=== PATIENT | female | born 1950 | race Caucasian/White ===

== ENCOUNTER → 2017-03-21 | Outpatient (CLI) | payer MEDICARE, BC ==
--- NOTE | 2017-03-21 10:05 | ECHOF ---
Referral Reason:I10 E66.01 obesity MEASUREMENTS -------- HEIGHT: 154.9 cm WEIGHT: 104.3 kg BP: IVSd: 1.0 cm (0.6 - 1.1) LVIDd: 4.1 cm (3.9 - 5.3) LVPWd: 1.2 cm (0.6 - 1.1) IVSs: 1.6 cm LVIDs: 2.0 cm LVPWs: 1.6 cm Ao Diam: 3.7 cm (2.0 - 3.7) AV Cusp: 1.2 cm (1.5 - 2.6) LA Diam: 3.7 cm (2.7 - 3.8) MV E Kendall: 1.05 m/s MV DecT: 124 ms MV A Kendall: 1.69 m/s MV E/A Ratio: 0.62 AV maxP.91 mmHg AV meanP.18 mmHg RAP: 5.00 mmHg RVSP: 19.44 mmHg FINDINGS -------- Sinus rhythm. This was a technically difficult study with suboptimal views. There is mild concentric left ventricular hypertrophy. Overall left ventricular systolic function is normal with, an EF between 55 - 60 %. The right ventricle is normal in size and function. The left atrium is normal in size. The right atrium is normal in size. The aortic valve was not well visualized. Aortic valve is trileaflet and is mildly thickened. There is mild aortic stenosis present. Peak/mean gradient across the Aortic Valve is 17.91mmHg / 12.18mmHg. The mitral valve leaflets are mildly thickened. Mild mitral annular calcification present. Mild mitral regurgitation is present. Trace tricuspid regurgitation present. The right ventricular systolic pressure, as measured by Doppler, is 19.44mmHg. Pulmonic valve appears structurally normal. The aortic root size is normal. The pericardium is normal. CONCLUSIONS -------- 1. Sinus rhythm. 2. There is mild aortic stenosis present. 3. Peak/mean gradient across the Aortic Valve is 17.91mmHg / 12.18mmHg. 4. The mitral valve leaflets are mildly thickened. 5. Mild mitral annular calcification present. 6. Mild mitral regurgitation is present. 7. Trace tricuspid regurgitation present. 8. The right ventricular systolic pressure, as measured by Doppler, is 19.44mmHg. 9. Pulmonic valve appears structurally normal. 10. The aortic root size is normal. 11. The pericardium is normal. 12. This was a technically difficult study with suboptimal views. 13. There is mild concentric left ventricular hypertrophy. 14. Overall left ventricular systolic function is normal with, an EF between 55 - 60 %. 15. The right ventricle is normal in size and function. 16. The left atrium is normal in size. 17. The right atrium is normal in size. 18. The aortic valve was not well visualized. 19. Aortic valve is trileaflet and is mildly thickened. BARIATRIC PHYSICIAN: Ave Hammonds RDCS
== END | disposition home or self-care (01) ==
LOC: RADECHMAIN 08:12
PROVIDERS: ATTEND Family Medicine
DX: I35.0 Nonrheumatic aortic (valve) stenosis (principal); I34.0 Nonrheumatic mitral (valve) insufficiency; I07.1 Rheumatic tricuspid insufficiency
CPT/HCPCS: 93306

== ENCOUNTER 2018-09-27 14:33 | Emergency (ER) | payer MEDICARE, BC ==
[2018-09-27] MEDS ORDERED: ACETAMINOPHEN TAB 500 MG TAB PO STA (15:01)
[2018-09-27] MEDS ORDERED: IBUPROFEN 600 MG TAB PO STA (15:01)
[2018-09-27] MEDS ORDERED: SODIUM CHLORIDE 0.9% 1,000 ML IV STA (15:02)
[2018-09-27 15:05] LABS: Anisocytosis Slight; Basophils % (A) 0 %; Eosinophils # (A) 0.2 k/uL (0-0.7); Eosinophils % (A) 1 %; HCT 42.8 % (34.0-46.0); HGB 14.5 gm/dL (11.4-16.0); Lymphocytes # (A) 0.3 k/uL (1.0-4.8); Lymphocytes % (A) 1 %; MCH 28.9 pg (25.0-35.0); MCHC 33.9 g/dL (31.0-37.0); MCV 85.1 fL (80.0-100.0); Mean Platelet Volume 7.4; Monocytes # (A) 0.3 k/uL (0-1.0); Monocytes % (A) 2 %; Neutrophils # (A) 18.1 k/uL (1.3-7.7); Neutrophils % (A) 96 %; Platelet Count 186 k/uL (150-450); RBC 5.03 m/uL (3.80-5.40); RDW 18.3 % (11.5-15.5)
--- NOTE | 2018-09-27 15:08 | ED ---
General Adult HPI - General Chief complaint: Fever Stated complaint: Fever,Weakness Time Seen by Provider: 09/27/18 14:55 Source: patient Mode of arrival: ambulatory Limitations: no limitations - History of Present Illness Initial comments: Patient 68-year-old male presented to the emergency room today with a chief complaint of cough congestion. Friend at bedside stating that she seemed confused earlier today. States she called her on the phone and was talking about going shopping and was only getting quick one-word answers back from her. Patient does admit that she's had a cough. She denies any sputum production. Patient does have a fever at triage. Patient was unaware fever has not taken any Tylenol or Motrin today. Patient denies any other complaints or any other symptoms. - Related Data Previous Rx's Medication Instructions Recorded Azithromycin [Zithromax Z-pack] 0 mg PO DIRECTED #6 tab 09/27/18 Allergies Allergy/AdvReac Type Severity Reaction Status Date / Time Penicillins Allergy Unknown Verified 09/27/18 14:56 Review of Systems ROS Statement: Those systems with pertinent positive or pertinent negative responses have been documented in the HPI. ROS Other: All systems not noted in ROS Statement are negative. Past Medical History Past Medical History: Diabetes Mellitus, Hypertension History of Any Multi-Drug Resistant Organisms: None Reported Past Surgical History: Orthopedic Surgery Past Psychological History: No Psychological Hx Reported Smoking Status: Never smoker Past Alcohol Use History: None Reported Past Drug Use History: None Reported General Exam - General Exam Comments Initial Comments: General: The patient is awake and alert, in no distress, and does not appear acutely ill. Eye: Pupils are equal, round and reactive to light. Extra-ocular movements are intact. No nystagmus. There is normal conjunctiva bilaterally. No signs of icterus. Ears, nose, mouth and throat: There are moist mucous membranes and no oral lesions. Neck: The neck is supple, there is no tenderness or JVD. Cardiovascular: Tachycardic. No murmur, rub or gallop is appreciated. Respiratory: Lungs are clear to auscultation, respirations are non-labored, breath sounds are equal. No wheezes, stridor, rales, or rhonchi. Gastrointestinal: Soft, non-distended, non-tender abdomen without masses or organomegaly noted. There is no rebound or guarding present. No CVA tenderness. Musculoskeletal: Normal ROM, no tenderness. Sensation intact. Strength 5/5. Pulses equal bilaterally 2+. Neurological: A&O x 3. CN II-XII intact, There are no obvious motor or sensory deficits. Coordination appears grossly intact. Speech is normal. Skin: Skin is warm and dry and no rashes or lesions are noted. Psychiatric: Cooperative, appropriate mood & affect, normal judgment. Limitations: no limitations Course Vital Signs 09/27/18 09/27/18 09/27/18 14:51 14:56 14:59 Temperature 101.6 F H Pulse Rate 124 H 117 H Respiratory 20 22 22 Rate Blood Pressure 141/75 130/66 O2 Sat by Pulse 95 94 L Oximetry 09/27/18 09/27/18 15:00 16:12 Temperature 100.5 F H Pulse Rate 117 H Respiratory 20 Rate Blood Pressure 130/66 O2 Sat by Pulse 96 Oximetry EKG Findings - EKG Comments: EKG Findings:: EKG performed at 1457: Shows sinus tachycardia 118 bpm. OR interval 150. QRS 78. QT/QTC 324/454. No acute ST changes. Medical Decision Making - Medical Decision Making Patient's labs been reviewed does show 19,000 white count. Patient's lactic acid negative. Patient's blood glucose mildly elevated. Is a diabetic. Patient was given IV fluids here in emergency room. They have fever at triage was given Tylenol/ibuprofen. Fever has improved. Tachycardia has decreased with fever control. BNP was added is 1300. Patient denies any shortness of breath. Chest x-rays negative for any sign of pneumonia. Patient does note some cough congestion. D-dimer negative. Case discussed in detail with attending physician Dr. Quevedo. Patient will be treated for bronchitis infection. Patient is advised follow-up family doctor in the next 2 days. She is agreement with plan to be discharged and started on antibiotics. Will be given first dose being here in the ER. - Lab Data Result diagrams: 09/27/18 14:49 09/27/18 14:49 Lab Results 09/27/18 09/27/18 09/27/18 Range/Units 14:49 14:49 14:49 WBC 19.0 H (3.8-10.6) k/uL RBC 5.03 (3.80-5.40) m/uL Hgb 14.5 (11.4-16.0) gm/dL Hct 42.8 (34.0-46.0) % MCV 85.1 (80.0-100.0) fL MCH 28.9 (25.0-35.0) pg MCHC 33.9 (31.0-37.0) g/dL RDW 18.3 H (11.5-15.5) % Plt Count 186 (150-450) k/uL Neutrophils % 96 % Lymphocytes % 1 % Monocytes % 2 % Eosinophils % 1 % Basophils % 0 % Neutrophils # 18.1 H (1.3-7.7) k/uL Lymphocytes # 0.3 L (1.0-4.8) k/uL Monocytes # 0.3 (0-1.0) k/uL Eosinophils # 0.2 (0-0.7) k/uL Basophils # 0.0 (0-0.2) k/uL Anisocytosis Slight PT (9.0-12.0) sec INR (<1.2) APTT (22.0-30.0) sec D-Dimer (<0.60) mg/L FEU Sodium 135 L (137-145) mmol/L Potassium 5.0 (3.5-5.1) mmol/L Chloride 103 (98-107) mmol/L Carbon Dioxide 19 L (22-30) mmol/L Anion Gap 13 mmol/L BUN 30 H (7-17) mg/dL Creatinine 1.28 H (0.52-1.04) mg/dL Est GFR (CKD-EPI)AfAm 51 (>60 ml/min/1.73 sqM) Est GFR (CKD-EPI)NonAf 44 (>60 ml/min/1.73 sqM) Glucose 267 H (74-99) mg/dL Plasma Lactic Acid Amaury 1.5 (0.7-2.0) mmol/L Calcium 9.9 (8.4-10.2) mg/dL Total Bilirubin 1.0 (0.2-1.3) mg/dL AST 26 (14-36) U/L ALT 32 (9-52) U/L Alkaline Phosphatase 68 (38-126) U/L NT-Pro-B Natriuret Pep pg/mL Total Protein 7.5 (6.3-8.2) g/dL Albumin 4.1 (3.5-5.0) g/dL Urine Color Urine Appearance (Clear) Urine pH (5.0-8.0) Ur Specific [place] (1.001-1.035) Urine Protein (Negative) Urine Glucose (UA) (Negative) Urine Ketones (Negative) Urine Blood (Negative) Urine Nitrite (Negative) Urine Bilirubin (Negative) Urine Urobilinogen (<2.0) mg/dL Ur Leukocyte Esterase (Negative) Influenza Type A RNA (Not Detectd) Influenza Type B (PCR) (Not Detectd) 09/27/18 09/27/18 09/27/18 Range/Units 14:49 14:49 14:49 WBC (3.8-10.6) k/uL RBC (3.80-5.40) m/uL Hgb (11.4-16.0) gm/dL Hct (34.0-46.0) % MCV (80.0-100.0) fL MCH (25.0-35.0) pg MCHC (31.0-37.0) g/dL RDW (11.5-15.5) % Plt Count (150-450) k/uL Neutrophils % % Lymphocytes % % Monocytes % % Eosinophils % % Basophils % % Neutrophils # (1.3-7.7) k/uL Lymphocytes # (1.0-4.8) k/uL Monocytes # (0-1.0) k/uL Eosinophils # (0-0.7) k/uL Basophils # (0-0.2) k/uL Anisocytosis PT 10.7 (9.0-12.0) sec INR 1.1 (<1.2) APTT 24.4 (22.0-30.0) sec D-Dimer (<0.60) mg/L FEU Sodium (137-145) mmol/L Potassium (3.5-5.1) mmol/L Chloride (98-107) mmol/L Carbon Dioxide (22-30) mmol/L Anion Gap mmol/L BUN (7-17) mg/dL Creatinine (0.52-1.04) mg/dL Est GFR (CKD-EPI)AfAm (>60 ml/min/1.73 sqM) Est GFR (CKD-EPI)NonAf (>60 ml/min/1.73 sqM) Glucose (74-99) mg/dL Plasma Lactic Acid Amaury (0.7-2.0) mmol/L Calcium (8.4-10.2) mg/dL Total Bilirubin (0.2-1.3) mg/dL AST (14-36) U/L ALT (9-52) U/L Alkaline Phosphatase (38-126) U/L NT-Pro-B Natriuret Pep 1320 pg/mL Total Protein (6.3-8.2) g/dL Albumin (3.5-5.0) g/dL Urine Color Urine Appearance (Clear) Urine pH (5.0-8.0) Ur Specific [place] (1.001-1.035) Urine Protein (Negative) Urine Glucose (UA) (Negative) Urine Ketones (Negative) Urine Blood (Negative) Urine Nitrite (Negative) Urine Bilirubin (Negative) Urine Urobilinogen (<2.0) mg/dL Ur Leukocyte Esterase (Negative) Influenza Type A RNA Not Detected (Not Detectd) Influenza Type B (PCR) Not Detected (Not Detectd) 09/27/18 09/27/18 Range/Units 14:49 16:25 WBC (3.8-10.6) k/uL RBC (3.80-5.40) m/uL Hgb (11.4-16.0) gm/dL Hct (34.0-46.0) % MCV (80.0-100.0) fL MCH (25.0-35.0) pg MCHC (31.0-37.0) g/dL RDW (11.5-15.5) % Plt Count (150-450) k/uL Neutrophils % % Lymphocytes % % Monocytes % % Eosinophils % % Basophils % % Neutrophils # (1.3-7.7) k/uL Lymphocytes # (1.0-4.8) k/uL Monocytes # (0-1.0) k/uL Eosinophils # (0-0.7) k/uL Basophils # (0-0.2) k/uL Anisocytosis PT (9.0-12.0) sec INR (<1.2) APTT (22.0-30.0) sec D-Dimer 0.56 (<0.60) mg/L FEU Sodium (137-145) mmol/L Potassium (3.5-5.1) mmol/L Chloride (98-107) mmol/L Carbon Dioxide (22-30) mmol/L Anion Gap mmol/L BUN (7-17) mg/dL Creatinine (0.52-1.04) mg/dL Est GFR (CKD-EPI)AfAm (>60 ml/min/1.73 sqM) Est GFR (CKD-EPI)NonAf (>60 ml/min/1.73 sqM) Glucose (74-99) mg/dL Plasma Lactic Acid Amaury (0.7-2.0) mmol/L Calcium (8.4-10.2) mg/dL Total Bilirubin (0.2-1.3) mg/dL AST (14-36) U/L ALT (9-52) U/L Alkaline Phosphatase (38-126) U/L NT-Pro-B Natriuret Pep pg/mL Total Protein (6.3-8.2) g/dL Albumin (3.5-5.0) g/dL Urine Color Yellow Urine Appearance Clear (Clear) Urine pH 5.0 (5.0-8.0) Ur Specific [place] 1.025 (1.001-1.035) Urine Protein Trace H (Negative) Urine Glucose (UA) 4+ H (Negative) Urine Ketones 1+ H (Negative) Urine Blood Negative (Negative) Urine Nitrite Negative (Negative) Urine Bilirubin Negative (Negative) Urine Urobilinogen <2.0 (<2.0) mg/dL Ur Leukocyte Esterase Negative (Negative) Influenza Type A RNA (Not Detectd) Influenza Type B (PCR) (Not Detectd) Disposition Clinical Impression: Acute bronchitis Disposition: HOME SELF-CARE Condition: Good Instructions: Acute Bronchitis (ED) Additional Instructions: Please follow-up the family doctor over the next 2 days. Please medication as prescribed. Please continue Tylenol/ibuprofen for fever control. Please return should symptoms increase or worsen. Prescriptions: Azithromycin [Zithromax Z-pack] 0 mg PO DIRECTED #6 tab Is patient prescribed a controlled substance at d/c from ED?: No Referrals: Nkechi Chan DO [Primary Care Provider] - 1-2 days Time of Disposition: 17:06
[2018-09-27 15:13] LABS: INR 1.1 (<1.2); Partial Thromboplastin Time 24.4 sec (22.0-30.0); Prothrombin Time 10.7 sec (9.0-12.0)
[2018-09-27 15:18] LABS: Albumin 4.1 g/dL (3.5-5.0); Calcium 9.9 mg/dL (8.4-10.2); Total Protein 7.5 g/dL (6.3-8.2)
--- NOTE | 2018-09-27 15:59 | XR ---
EXAMINATION TYPE: XR chest 2V DATE OF EXAM: 09/27/2018 COMPARISON: 09/11/2010 HISTORY: Fever and weakness TECHNIQUE: Frontal and lateral views of the chest are obtained. FINDINGS: There are patchy bibasilar opacities although aeration is improved from the prior of 2009. Minimal cephalization is also noted. Cardia mediastinal silhouette is upper limits of normal. M inimal degenerative changes of the thoracic spine are seen. IMPRESSION: Patchy bibasilar opacities are ill-defined and likely represent atelectasis. There is al so mild cephalization relating to mild pulmonary vascular congestion that could be on the basis of ca rdiogenic or noncardiogenic fluid overload.
[2018-09-27 16:34] LABS: Appearance,Urine Clear (Clear); Bilirubin,Urine Negative (Negative); Blood,Urine Negative (Negative); Color,Urine Yellow; Glucose,Urine (UA) 4+ (Negative); Ketones,Urine 1+ (Negative); Leukocyte Esterase,Urine Negative (Negative); Nitrite,Urine Negative (Negative); Protein,Urine Trace (Negative); Specific Gravity,Urine 1.025 (1.001-1.035); Urobilinogen,Urine <2.0 mg/dL (<2.0)
[2018-09-27] MEDS ORDERED: AZITHROMYCIN 500 MG TAB PO STA (17:06)
[2018-09-27 17:23] VITALS: BP 109/60; PULSE 94; RESP 18; TEMP 99
== END 2018-09-27 17:23 | disposition home or self-care (01) ==
LOC: EC 14:33
DX: J20.9 Acute bronchitis, unspecified (principal); R00.0 Tachycardia, unspecified; R41.0 Disorientation, unspecified; E11.9 Type 2 diabetes mellitus without complications; Z88.0 Allergy status to penicillin
CPT/HCPCS: 36415; 71046; 80053; 81003; 83605; 83880; 85025; 85379; 85610; 85730; 87040; 87086; 87502; 93005; 96360; 99284

== ENCOUNTER 2019-06-30 14:24 | Emergency (ER) | payer MEDICARE, BC ==
[2019-06-30] MEDS ORDERED: IBUPROFEN 600 MG TAB PO STA (14:39)
[2019-06-30] MEDS ORDERED: SODIUM CHLORIDE 0.9% 500 ML 500 ML IV STA (14:39)
[2019-06-30] MEDS ORDERED: ACETAMINOPHEN TAB 500 MG TAB PO STA (14:39)
[2019-06-30] MEDS ORDERED: SODIUM CHLORIDE 0.9% 1,000 ML IV STA ×3 (14:39→16:00)
--- NOTE | 2019-06-30 14:41 | ED ---
Weakness HPI - General Chief complaint: Recheck/Abnormal Lab/Rx Stated complaint: Sepsis Time Seen by Provider: 06/30/19 14:39 Source: EMS, RN notes reviewed, old records reviewed Mode of arrival: EMS Limitations: no limitations - History of Present Illness Initial comments: This is a 69-year-old female the ER for evaluation today. States she presents for evaluation of not feeling well altered mental status for friend and weakness. A she has medical history of diabetes high blood pressure. Denies any chest pain. Bristly treating for bronchitis, steroids and antibiotics. Patient believes she isn't taking medication as prescribed, patient's friend bedside patient states patient is not acting appropriately, she started yesterday and she is mildly worse today although was not also acting well yesterday. Patient herself is again denying any headache chest pain shortness of breath or abdominal pain no nausea vomiting or diarrhea. MD Complaint: generalized weakness, lack of energy (Altered mental status) -: days(s) Location: generalized Severity: moderate Severity scale (1-10): 7 Consistency: constant Improves with: none Worsens with: none Context: recent illness Associated Symptoms: confusion, fever/chills, shortness of breath - Related Data Home Medications Medication Instructions Recorded Confirmed Albuterol Sulfate [Proair Hfa] 1 - 2 puff INHALATION RT-QID PRN 06/30/19 06/30/19 Ertugliflozin Pidolate [Steglatro] 15 mg PO DAILY 06/30/19 06/30/19 Folic Acid 1 mg PO DAILY 06/30/19 06/30/19 Lisinopril-Hctz 20-12.5 mg 1 tab PO DAILY 06/30/19 06/30/19 [Zestoretic 20-12.5] Methotrexate Sodium [Methotrexate] 25 mg PO WE 06/30/19 06/30/19 predniSONE See Taper PO DAILY 06/30/19 06/30/19 sitaGLIPtin PHOS/metFORMIN HCL 1 tab PO BID 06/30/19 06/30/19 [Janumet 50-1,000 mg Tablet] Allergies Allergy/AdvReac Type Severity Reaction Status Date / Time Penicillins Allergy Dyspnea Verified 06/30/19 15:11 Review of Systems ROS Statement: Those systems with pertinent positive or pertinent negative responses have been documented in the HPI. ROS Other: All systems not noted in ROS Statement are negative. Past Medical History Past Medical History: Diabetes Mellitus, Hypertension History of Any Multi-Drug Resistant Organisms: None Reported Past Surgical History: Orthopedic Surgery Past Psychological History: No Psychological Hx Reported Smoking Status: Never smoker Past Alcohol Use History: None Reported Past Drug Use History: None Reported General Exam Limitations: no limitations General appearance: alert, in no apparent distress Head exam: Present: atraumatic, normocephalic, normal inspection Eye exam: Present: normal appearance, PERRL, EOMI. Absent: scleral icterus, conjunctival injection, periorbital swelling ENT exam: Present: normal exam, mucous membranes dry Neck exam: Present: normal inspection. Absent: tenderness, meningismus, lymphadenopathy Respiratory exam: Present: wheezes. Absent: respiratory distress, rales, rhonchi, stridor Cardiovascular Exam: Present: normal rhythm, tachycardia, normal heart sounds. Absent: systolic murmur, diastolic murmur, rubs, gallop, clicks GI/Abdominal exam: Present: soft, normal bowel sounds. Absent: distended, tenderness, guarding, rebound, rigid Extremities exam: Present: normal inspection, full ROM, normal capillary refill. Absent: tenderness, pedal edema, joint swelling, calf tenderness Back exam: Present: normal inspection Neurological exam: Present: alert, oriented X3, CN II-XII intact Psychiatric exam: Present: normal affect, normal mood Skin exam: Present: warm, dry, intact, normal color. Absent: rash Course Vital Signs 06/30/19 06/30/19 06/30/19 14:33 15:00 15:45 Temperature 99.2 F Pulse Rate 118 H 112 H 112 H Respiratory 20 22 18 Rate Blood Pressure 117/54 109/63 107/57 O2 Sat by Pulse 98 98 100 Oximetry - Reevaluation(s) Reevaluation #1: 06/30/19 14:54 Medical records reviewed Reevaluation #2: 06/30/19 16:24 Patient remains not feeling well severely dehydrated mildly confused EKG Findings - EKG Comments: EKG Findings:: EKG shows sinus tachycardia rate of 118, DC 140, QRS 74, QTc 437 Medical Decision Making - Medical Decision Making 69 female the ER for altered mental status new-onset renal failure potassium 5.5, patient be admitted for significant rehydration, nephrology to see. Patient has negative CT brain, chest x-rays negative. - Lab Data Result diagrams: 06/30/19 14:55 06/30/19 14:55 Lab Results 06/30/19 06/30/19 06/30/19 Range/Units 14:55 14:55 14:55 WBC 6.5 (3.8-10.6) k/uL RBC 4.51 (3.80-5.40) m/uL Hgb 13.4 (11.4-16.0) gm/dL Hct 41.9 (34.0-46.0) % MCV 92.9 (80.0-100.0) fL MCH 29.8 (25.0-35.0) pg MCHC 32.1 (31.0-37.0) g/dL RDW 20.8 H (11.5-15.5) % Plt Count 139 L (150-450) k/uL Neutrophils % 90 % Lymphocytes % 6 % Monocytes % 4 % Eosinophils % 0 % Basophils % 0 % Neutrophils # 5.8 (1.3-7.7) k/uL Lymphocytes # 0.4 L (1.0-4.8) k/uL Monocytes # 0.2 (0-1.0) k/uL Eosinophils # 0.0 (0-0.7) k/uL Basophils # 0.0 (0-0.2) k/uL Anisocytosis Moderate Macrocytosis Slight Sodium 144 (137-145) mmol/L Potassium 5.5 H (3.5-5.1) mmol/L Chloride 115 H (98-107) mmol/L Carbon Dioxide 14 L (22-30) mmol/L Anion Gap 15 mmol/L BUN 128 H* (7-17) mg/dL Creatinine 4.82 H (0.52-1.04) mg/dL Est GFR (CKD-EPI)AfAm 10 (>60 ml/min/1.73 sqM) Est GFR (CKD-EPI)NonAf 9 (>60 ml/min/1.73 sqM) Glucose 285 H (74-99) mg/dL Plasma Lactic Acid Amaury 1.6 (0.7-2.0) mmol/L Calcium 9.0 (8.4-10.2) mg/dL Phosphorus 6.8 H (2.5-4.5) mg/dL Magnesium 2.5 H (1.6-2.3) mg/dL Total Bilirubin 0.9 (0.2-1.3) mg/dL AST 21 (14-36) U/L ALT 42 (9-52) U/L Alkaline Phosphatase 75 (38-126) U/L Ammonia (<30) umol/L Total Protein 6.7 (6.3-8.2) g/dL Albumin 3.8 (3.5-5.0) g/dL 06/30/19 Range/Units 14:55 WBC (3.8-10.6) k/uL RBC (3.80-5.40) m/uL Hgb (11.4-16.0) gm/dL Hct (34.0-46.0) % MCV (80.0-100.0) fL MCH (25.0-35.0) pg MCHC (31.0-37.0) g/dL RDW (11.5-15.5) % Plt Count (150-450) k/uL Neutrophils % % Lymphocytes % % Monocytes % % Eosinophils % % Basophils % % Neutrophils # (1.3-7.7) k/uL Lymphocytes # (1.0-4.8) k/uL Monocytes # (0-1.0) k/uL Eosinophils # (0-0.7) k/uL Basophils # (0-0.2) k/uL Anisocytosis Macrocytosis Sodium (137-145) mmol/L Potassium (3.5-5.1) mmol/L Chloride (98-107) mmol/L Carbon Dioxide (22-30) mmol/L Anion Gap mmol/L BUN (7-17) mg/dL Creatinine (0.52-1.04) mg/dL Est GFR (CKD-EPI)AfAm (>60 ml/min/1.73 sqM) Est GFR (CKD-EPI)NonAf (>60 ml/min/1.73 sqM) Glucose (74-99) mg/dL Plasma Lactic Acid Amaury (0.7-2.0) mmol/L Calcium (8.4-10.2) mg/dL Phosphorus (2.5-4.5) mg/dL Magnesium (1.6-2.3) mg/dL Total Bilirubin (0.2-1.3) mg/dL AST (14-36) U/L ALT (9-52) U/L Alkaline Phosphatase (38-126) U/L Ammonia <9 (<30) umol/L Total Protein (6.3-8.2) g/dL Albumin (3.5-5.0) g/dL - Radiology Data Radiology results: report reviewed (Chest x-rays negative for acute disease CT brain negative for acute disease), image reviewed Critical Care Time Critical Care Time: Yes Total Critical Care Time: 31 Disposition Clinical Impression: Uremia, Altered mental status, Hyperkalemia, Weakness, Dehydration Disposition: ADMITTED IP TO THIS [facility] Condition: Serious Is patient prescribed a controlled substance at d/c from ED?: No Referrals: Nkechi Chan DO [Primary Care Provider] - 1-2 days
[2019-06-30 15:27] LABS: Anisocytosis Moderate; Basophils % (A) 0 %; Eosinophils % (A) 0 %; HCT 41.9 % (34.0-46.0); HGB 13.4 gm/dL (11.4-16.0); Lymphocytes # (A) 0.4 k/uL (1.0-4.8); Lymphocytes % (A) 6 %; MCH 29.8 pg (25.0-35.0); MCHC 32.1 g/dL (31.0-37.0); MCV 92.9 fL (80.0-100.0); Macrocytosis Slight; Monocytes # (A) 0.2 k/uL (0-1.0); Monocytes % (A) 4 %; Neutrophils # (A) 5.8 k/uL (1.3-7.7); Neutrophils % (A) 90 %; Platelet Count 139 k/uL (150-450); RBC 4.51 m/uL (3.80-5.40); RDW 20.8 % (11.5-15.5); WBC 6.5 k/uL (3.8-10.6)
--- NOTE | 2019-06-30 15:41 | XR ---
EXAMINATION TYPE: XR chest 2V DATE OF EXAM: 06/30/2019 COMPARISON: 09/27/2018 INDICATION: Cough TECHNIQUE: Frontal and lateral views of the chest are obtained. FINDINGS: The heart size is normal. The pulmonary vasculature is normal. The lungs are clear. There is hyperinflation flattening the diaphragms compatible COPD. IMPRESSION: 1. No acute pulmonary process. 2. COPD
[2019-06-30 15:43] LABS: Albumin 3.8 g/dL (3.5-5.0); Magnesium 2.5 mg/dL (1.6-2.3); Phosphorus 6.8 mg/dL (2.5-4.5); Potassium 5.5 mmol/L (3.5-5.1); Total Bilirubin 0.9 mg/dL (0.2-1.3); Total Protein 6.7 g/dL (6.3-8.2)
[2019-06-30] MEDS ORDERED: IPRATROPIUM-ALBUTEROL 3 ML NEB INHALATION PRN (16:01)
[2019-06-30] MEDS ORDERED: methylPREDNISolone SOD SUCCI 125 MG/2 ML VIAL IV STA (16:01)
[2019-06-30] MEDS ORDERED: IPRATROPIUM-ALBUTEROL 3 ML NEB INHALATION STA (16:01)
[2019-06-30] MEDS ORDERED: NALOXONE 0.4 MG/ML 1 ML VIAL IV PRN (16:20)
[2019-06-30] MEDS ORDERED: SODIUM CHLORIDE 0.9% 1,000 ML IV SCH (16:30)
--- NOTE | 2019-06-30 17:21 | ED ---
Medical Decision Making - Medical Decision Making 69 female the ER for evaluation of altered mental status. Patient is significantly uremic likely probably has acute fall, positive subarachnoid bleed and brain CT. We'll transfer for neurosurgical evaluation and management. Patient will also need further urology evaluation. Spoke with family regarding need for transfer, questions are answered, - Lab Data Result diagrams: 06/30/19 14:55 06/30/19 14:55 Lab Results 06/30/19 06/30/19 06/30/19 Range/Units 14:55 14:55 14:55 WBC 6.5 (3.8-10.6) k/uL RBC 4.51 (3.80-5.40) m/uL Hgb 13.4 (11.4-16.0) gm/dL Hct 41.9 (34.0-46.0) % MCV 92.9 (80.0-100.0) fL MCH 29.8 (25.0-35.0) pg MCHC 32.1 (31.0-37.0) g/dL RDW 20.8 H (11.5-15.5) % Plt Count 139 L (150-450) k/uL Neutrophils % 90 % Lymphocytes % 6 % Monocytes % 4 % Eosinophils % 0 % Basophils % 0 % Neutrophils # 5.8 (1.3-7.7) k/uL Lymphocytes # 0.4 L (1.0-4.8) k/uL Monocytes # 0.2 (0-1.0) k/uL Eosinophils # 0.0 (0-0.7) k/uL Basophils # 0.0 (0-0.2) k/uL Anisocytosis Moderate Macrocytosis Slight Sodium 144 (137-145) mmol/L Potassium 5.5 H (3.5-5.1) mmol/L Chloride 115 H (98-107) mmol/L Carbon Dioxide 14 L (22-30) mmol/L Anion Gap 15 mmol/L BUN 128 H* (7-17) mg/dL Creatinine 4.82 H (0.52-1.04) mg/dL Est GFR (CKD-EPI)AfAm 10 (>60 ml/min/1.73 sqM) Est GFR (CKD-EPI)NonAf 9 (>60 ml/min/1.73 sqM) Glucose 285 H (74-99) mg/dL Plasma Lactic Acid Amaury 1.6 (0.7-2.0) mmol/L Calcium 9.0 (8.4-10.2) mg/dL Phosphorus 6.8 H (2.5-4.5) mg/dL Magnesium 2.5 H (1.6-2.3) mg/dL Total Bilirubin 0.9 (0.2-1.3) mg/dL AST 21 (14-36) U/L ALT 42 (9-52) U/L Alkaline Phosphatase 75 (38-126) U/L Ammonia (<30) umol/L Total Protein 6.7 (6.3-8.2) g/dL Albumin 3.8 (3.5-5.0) g/dL 06/30/19 Range/Units 14:55 WBC (3.8-10.6) k/uL RBC (3.80-5.40) m/uL Hgb (11.4-16.0) gm/dL Hct (34.0-46.0) % MCV (80.0-100.0) fL MCH (25.0-35.0) pg MCHC (31.0-37.0) g/dL RDW (11.5-15.5) % Plt Count (150-450) k/uL Neutrophils % % Lymphocytes % % Monocytes % % Eosinophils % % Basophils % % Neutrophils # (1.3-7.7) k/uL Lymphocytes # (1.0-4.8) k/uL Monocytes # (0-1.0) k/uL Eosinophils # (0-0.7) k/uL Basophils # (0-0.2) k/uL Anisocytosis Macrocytosis Sodium (137-145) mmol/L Potassium (3.5-5.1) mmol/L Chloride (98-107) mmol/L Carbon Dioxide (22-30) mmol/L Anion Gap mmol/L BUN (7-17) mg/dL Creatinine (0.52-1.04) mg/dL Est GFR (CKD-EPI)AfAm (>60 ml/min/1.73 sqM) Est GFR (CKD-EPI)NonAf (>60 ml/min/1.73 sqM) Glucose (74-99) mg/dL Plasma Lactic Acid Amaury (0.7-2.0) mmol/L Calcium (8.4-10.2) mg/dL Phosphorus (2.5-4.5) mg/dL Magnesium (1.6-2.3) mg/dL Total Bilirubin (0.2-1.3) mg/dL AST (14-36) U/L ALT (9-52) U/L Alkaline Phosphatase (38-126) U/L Ammonia <9 (<30) umol/L Total Protein (6.3-8.2) g/dL Albumin (3.5-5.0) g/dL - Radiology Data Radiology results: report reviewed (CT brain positive for subarachnoid hemorrhage), image reviewed Critical Care Time Critical Care Time: Yes Total Critical Care Time: 31 Disposition Clinical Impression: Uremia, Altered mental status, Hyperkalemia, Weakness, Dehydration, Subarachnoid hemorrhage Disposition: OTHER INSTITUTION NOT DEFINED Condition: Serious Is patient prescribed a controlled substance at d/c from ED?: No Referrals: Nkechi Chan DO [Primary Care Provider] - 1-2 days - Out of Hospital Transfer - Req. Specs Out of Hospital Transfer - Requested Specifics: Other Emergency Center ([facility])
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
[2019-06-30] MEDS ORDERED: cefTRIAXone IN SWFI 1,000 MG/10 ML SYRINGE IVP STA (17:37)
--- NOTE | 2019-06-30 17:52 | US ---
EXAMINATION TYPE: US renals and bladder DATE OF EXAM: 06/30/2019 COMPARISON: NONE CLINICAL HISTORY: Pain. Abdomen pain EXAM MEASUREMENTS: Right Kidney: 10.4 x 4.4 x 4.4 cm Left Kidney: 9.4 x 5.1 x 5.0 cm Difficult and limited study due to patient body habitus and patient unable to lay flat for exam Right Kidney: no hydronephrosis or masses seen Left Kidney: multiple echogenic foci throughout no evidence of hydronephrosis. Bladder: not seen due to limitations listed above IMPRESSION: 1. There may be some punctate renal stones present on the right without evidence of hydronephrosis.
[2019-06-30 23:11] VITALS: BP 92/65; PULSE 126; RESP 24; TEMP 98
[2019-07-01] MEDS ORDERED: methylPREDNISolone SOD SUCCI 125 MG/2 ML VIAL IV SCH
== END 2019-06-30 19:00 | disposition other institution (70) ==
LOC: EC 14:24 → UNDOADMIN 16:20 → 3SCARD 16:20 → EC 19:00
DX: N19 Unspecified kidney failure (principal); E87.5 Hyperkalemia; I60.9 Nontraumatic subarachnoid hemorrhage, unspecified; R53.1 Weakness; E86.0 Dehydration; R06.02 Shortness of breath; E11.9 Type 2 diabetes mellitus without complications; I10 Essential (primary) hypertension; Z79.84 Long term (current) use of oral hypoglycemic drugs; Z79.52 Long term (current) use of systemic steroids; Z79.899 Other long term (current) drug therapy; Z88.0 Allergy status to penicillin
CPT/HCPCS: 36415; 94640; 93005; 80053; 82140; 82550; 82553; 83605; 83735; 84100; 85025; 87040; 71046; 76770; 70450; 99291; 96374; 96361 ×4; J2930